=== PATIENT | male | born 1995 | race Two or more races ===

== ENCOUNTER 2024-03-09 18:49 | Outpatient (CLI) | payer OTHER ==
--- NOTE | 2024-03-10 11:46 | Ultrasound Report ---
PROCEDURE: Soft Tissue Head or Neck INDICATIONS: CHIN MASS TECHNIQUE: Real-time scanning was performed of the chin in the area of interest, with image documentation. COMPARISON: None FINDINGS: Right chin area of interest shows a well-circumscribed heterogeneous isoechoic lesion measuring 1.4 x 1.4 x 1.4 cm. IMPRESSION: Within the area interest, there is a well-circumscribed heterogeneous lesion measuring 1.4 cm. May re present an epidermal inclusion cyst. Recommend clinical correlation. If there is concern for growth, recommend follow-up imaging. Reviewed by: Marcelo Pierre MD on 03/10/2024 11:45 AM PDT Approved by: Marcelo Pierre MD on 03/10/2024 11:45 AM PDT Station ID: [id number]
== END 2024-03-09 18:50 | disposition home or self-care (01) ==
LOC: DI 18:49
PROVIDERS: ATTEND Internal Medicine
DX: R93.89 Abnormal findings on diagnostic imaging of other specified body structures (principal)